=== PATIENT | female | born 1940 | race Caucasian/White ===

== ENCOUNTER 2019-04-23 11:53 | Day surgery (SDC) | payer MEDICARE ==
[2019-04-22 15:13] LABS: BASOPHILS # (AUTO) 0.1 X10'3 (0-0.2); BASOPHILS % (AUTO) 1.2 % (0-1); EOSINOPHILS # (AUTO) 0.1 X10'3 (0-0.9); EOSINOPHILS % (AUTO) 2.5 % (0-6); HEMATOCRIT 39.7 % (35.0-45.0); HEMOGLOBIN 13.5 g/dl (12.0-16.0); LYMPHOCYTES # (AUTO) 1.4 X10'3 (1.1-4.8); LYMPHOCYTES % (AUTO) 26.4 % (21-51); MEAN CORPUSCULAR HEMOGLOBIN 31.3 PG (27.0-31.0); MEAN CORPUSCULAR HGB CONC 34.1 g/dL (33.0-36.5); MEAN CORPUSCULAR VOLUME 91.9 FL (78-98); MEAN PLATELET VOLUME 9.1 FL (7.4-10.4); MONOCYTES # (AUTO) 0.5 X10'3 (0-0.9); MONOCYTES % (AUTO) 8.8 % (2-12); NEUTROPHILS # (AUTO) 3.3 X10'3 (1.8-7.7); NEUTROPHILS % (AUTO) 61.1 % (42-75); PLATELET COUNT 337 X10'3 (140-440); RED BLOOD COUNT 4.32 X10'6 (4.20-5.60); RED CELL DISTRIBUTION WIDTH 14.3 % (11.5-14.5); WHITE BLOOD COUNT 5.4 X10'3 (4.5-11.0)
[2019-04-22 15:25] LABS: PARTIAL THROMBOPLASTIN TIME 26 SECONDS (22-32)
[2019-04-22 15:29] LABS: ALBUMIN 4.2 G/DL (3.4-5.0); ANION GAP 9 (8-16); BLOOD UREA NITROGEN 37 MG/DL (7-18); BUN/CREATININE RATIO 30.8 (6.6-38.0); CHLORIDE 104 MMOL/L (99-107); GLUCOSE 125 MG/DL (70-104); POTASSIUM 3.8 MMOL/L (3.5-5.1); SODIUM 142 MMOL/L (135-145); TOTAL CARBON DIOXIDE 29.1 MMOL/L (24-32); eGFR 44 ML/MIN
[~2019-04-23] VITALS: Ht 172.7 cm; Wt 94.3 kg
[2019-04-23] VITALS (10 sets, daily range): BP systolic 119–157; BP diastolic 53–77
[2019-04-23] MEDS ORDERED: LORazepam 0.5 MG tablet PO PRN (12:10)
[2019-04-23] MEDS ORDERED: diphenhydrAMINE 25mg capsule PO PRN (12:10)
[2019-04-23] MEDS ORDERED: normal saline 1,000 ML IV SCH (12:10)
[2019-04-23] MEDS ORDERED: LIDOcaine/PRILOcaine 5gm cream TP ONE (12:20)
[2019-04-23] MEDS ORDERED: [UNRECOGNIZED DRUG - CODE] PO (13:25)
[2019-04-23] MEDS ORDERED: PRAV20TA4 PO (13:25)
[2019-04-23] MEDS ORDERED: LISI-600 PO (13:25)
[2019-04-23] MEDS ORDERED: [UNRECOGNIZED DRUG - CODE] PO (13:25)
[2019-04-23] MEDS ORDERED: ASPI-611 PO (13:25)
[2019-04-23] MEDS ORDERED: CHOL100046 PO (13:25)
[2019-04-23] MEDS ORDERED: nitroGLYCERIN-Tridil 50MG/D5W 250 ML IV ONE ×2 (14:02→14:10)
[2019-04-23] MEDS ORDERED: iohexol 350MG/ML 100ml bottle IV ONE (14:03)
[2019-04-23] MEDS ORDERED: verapamil 2.5 mg/ml inj IV ONE (14:03)
[2019-04-23] MEDS ORDERED: iohexol 350 MG/ML 50ML vial IV ONE (14:03)
[2019-04-23] MEDS ORDERED: LIDOcaine 1% (10mg/ml)w/preservative injection 20ml MDV ONE (14:03)
[2019-04-23] MEDS ORDERED: heparin 1,000unit/ml 10ml vial 10 ML ONE (14:03)
[2019-04-23] MEDS ORDERED: fentaNYL/PF 50MCG/1 ML 2ML syringe ONE (15:08)
[2019-04-23] MEDS ORDERED: midazolam 2 mg/2 ml injection ONE (15:08)
== END 2019-04-23 20:26 | disposition home or self-care (01) ==
LOC: SSTAY O 11:53
PROVIDERS: ATTEND Internal Medicine Cardiovascular Disease
DX: I25.10 Atherosclerotic heart disease of native coronary artery without angina pectoris (principal); R94.39 Abnormal result of other cardiovascular function study; R53.83 Other fatigue; I10 Essential (primary) hypertension; R06.02 Shortness of breath; E78.5 Hyperlipidemia, unspecified; R42 Dizziness and giddiness
CPT/HCPCS: 36415; 80048; 85025; 85610; 85730; 93005; 93458; 99152; C1769; C1894; J1644; J2001; J2250; J3010; J7030; Q0163; Q9967; A6258; C1760; J3490